=== PATIENT | female | born 1965 ===

== ENCOUNTER 2018-03-03 12:23 | Emergency (ER) | payer OTHER ==
[2018-03-03 13:02] VITALS: BP 139/73
--- NOTE | 2018-03-03 13:18 | UC ---
Headache HPI - HPI Summary HPI Summary: PT IS C/O EPISODIC SHARP SENSATIONS OF BEING POKED IN THE RIGHT FOREHEAD WITH A NEEDLE. ONSET TODAY. PAIN RADIATES TO HER RIGHT EAR. IT OCCURS EVERY FEW MINUTES AND LASTS FOR A COUPLE OF SECONDS. NO HX INJURY OR FEVER. NO PAIN IN THE SAM[place]IT[place] OR JAW. NO EYE PAIN OR TEARING. NO OTHER FACIAL OR HEAD PAINS. STATES HX OF "A COMPRESSED NERVE INSIDE HER HEAD". GETS A CT YEARLY TO FOLLOW IT. ADMITS TO [facility]ERE[facility]EURYS[facility], 2 SIBLINGS. ONE PASSED FROM IT AND THE OTHER SURVIVED. SIBLING AGES 38 AND 43 YO. DENIES VISUAL LOSS/CHANGE, DIZZINESS, NUMB/WEAK EXTREMITIES. - History Of Current Complaint Chief Complaint: UCHeadache Stated Complaint: HEADACHE PULSATING RIGHT Time Seen by Provider: 03/03/18 13:10 Hx Obtained From: Patient Hx Last Menstrual Period: six years ago Pain Intensity: 8 Aggravating Factor(s): Nothing Allevating Factor(s): Nothing Associated Signs And Symptoms: Negative: Dizziness, Nausea, Vomiting, Neck Pain , Neck Stiffness, Decreased LOC, Visual Changes - Risk Factors Meningitis Risk Factors: Negative - Allergies/Home Medications Allergies/Adverse Reactions: Allergies Allergy/AdvReac Type Severity Reaction Status Date / Time onion Allergy Severe Anaphylatic Verified 03/03/18 13:03 Shock latex Allergy Intermediate Hives Verified 03/03/18 13:03 lavender (Lavandula Allergy Intermediate Hives Verified 03/03/18 13:03 angustifolia) ibuprofen Allergy Hives Verified 03/03/18 13:02 Home Medications: Home Medications traMADol TAB* [Ultram*] 50 mg PO Q6HR PRN 03/03/18 [History Confirmed 03/03/18] PMH/Surg Hx/FS Hx/Imm Hx Cardiovascular History: Other - TACHYCARDIA-[place] VAGAL MANEUVERS Other Cardiovascular History: TACHYCARDIA-TX VAGAL MANEUVERS Neurological History: Migraine - PRESENTS WITH TOPICAL GUEVARA'S, RED EYES AND PHOTOPHOBIA - Surgical History Surgical History: Yes Surgery Procedure, Year, and Place: Cholecystectomy, 2007, [facility] - Family History Known Family History: Positive: Hypertension, Other - CEREBRAL ANEURYSM - Social History Occupation: Employed Full-time Alcohol Use: Occasionally Substance Use Type: None Smoking Status (MU): Light Every Day Tobacco Smoker Type: Cigarettes Amount Used/How Often: 1/2 pack daily Have You Smoked in the Last Year: Yes Household Exposure Type: Cigarettes - Immunization History Vaccination Up to Date: Yes Review of Systems Constitutional: Negative Skin: Negative Eyes: Negative ENT: Negative Respiratory: Negative Cardiovascular: Negative Gastrointestinal: Negative Genitourinary: Negative Motor: Negative Neurovascular: Negative Musculoskeletal: Negative Neurological: Headache Psychological: Negative Is Patient Immunocompromised?: No All Other Systems Reviewed And Are Negative: Yes Physical Exam Triage Information Reviewed: Yes Appearance: Well-Appearing Vital Signs: Initial Vital Signs Temp 98.0 F 03/03/18 12:56 Pulse 71 03/03/18 12:56 Resp 18 03/03/18 12:56 BP 139/73 03/03/18 12:56 Pulse Ox 98 03/03/18 12:56 Vital Signs Reviewed: Yes Eyes: Positive: Conjunctiva Clear, Other: - PERRL, EOMI ENT: Positive: Pharynx normal, TMs normal. Negative: Nasal congestion, Nasal drainage Neck: Positive: Supple, Nontender, No Lymphadenopathy, Other: - NO BRUITS. Negative: Nuchal Rigidity Respiratory: Positive: Lungs clear, Normal breath sounds Cardiovascular: Positive: RRR, No Murmur Abdomen Description: Positive: Nontender, No Organomegaly, Soft Bowel Sounds: Positive: Present Musculoskeletal: Positive: ROM Intact, No Edema Neurological: Positive: Other: - A&0 X3. CN 2-12 GROSSLY INTACT. 5/5 STRENGTH AND 2+ REFLEXES X4. STEADY GAIT. NEGATIVE RHOMBERG AND PRONATOR DRIFT. RAPID ALTERNATING MOVES WITH EASE. Psychological: Positive: Age Appropriate Behavior Skin Exam: Normal Diagnostics - Radiology No standard instances Radiology Interpretation Completed By: Radiologist - CT brain, IMPRESSION: NO EVIDENCE FOR ACUTE INTRACRANIAL ABNORMALITY. Headache Course/Dx - Course Course Of Treatment: NO TEMPORAL SWELLING OR TEMPORAL ARTERY TENDERNESS AND VISION INTACT, NO CONCERN FOR TEMPORAL ARTERITIS. NO PAIN WITH TRIGEMNIAL NERVE TAP AND NOT C/W THAT NERVE DISTRIBUTION. NO PAIN TO OR BEHIND THE RIGHT EYE AND NO TEARING OR VISUAL DISTURBANCE THUS CLUSTER GUEVARA LESS LIKELY. NON- TOXIC. NEURO EXAM AND CT A RE REASSURING THUS APPROPRIATE FOR DISCHARGE. PT AGREES TO GOT TO THE ER FOR ANY WORSENING ANFD TO F/U WITH HER PCP DYANA. - Differential Dx/Diagnosis Provider Diagnoses: HEADACHE Discharge - Sign-Out/Discharge Documenting (check all that apply): Patient Departure All imaging exams completed and their final reports reviewed: Yes - Discharge Plan Condition: Stable Disposition: HOME Patient Education Materials: Acute Headache (ED) Referrals: Gissell Christopher PA [Primary Care Provider] - As Soon As Possible Additional Instructions: TAKE TRAMADOL DIRECTED FOR PAIN - Billing Disposition and Condition Condition: STABLE Disposition: Home
--- NOTE | 2018-03-03 14:32 | RAD ---
INDICATION: Right frontal headache. COMPARISON: There are no relevant prior studies available for comparison. TECHNIQUE: Contiguous axial sections of the brain were obtained from the skull base to the vertex without contrast. FINDINGS: The ventricles, cisterns and sulci are within normal limits. No significant focal abnormality or mass effect is seen. There is no evidence for hemorrhage. No significant focal osseous abnormality is seen. The visualized portion of the paranasal sinuses and mastoid air cells appear clear. IMPRESSION: NO EVIDENCE FOR ACUTE INTRACRANIAL ABNORMALITY.
== END 2018-03-03 15:29 | disposition home or self-care (01) ==
LOC: UCCORT 12:23
DX: R51 Headache (principal)
CPT/HCPCS: 70450; 99211; G0463